=== PATIENT | male | born 2000 | race Caucasian/White ===

== ENCOUNTER 2019-06-21 02:20 | Emergency (ER) | payer SELFPAY ==
[~2019-06-21] VITALS: Ht 175.3 cm; Wt 77.1 kg
[2019-06-21 02:28] VITALS: BP 125/39
--- NOTE | 2019-06-21 02:28 | NUR ---
EDNA QUEZADA TO CHAIR D
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
--- NOTE | 2019-06-21 02:45 | NUR ---
PT DISCHARGED BACK TO [facility] CUSTODY BY DR. GALLEGOS
[2019-06-21 02:46] VITALS: BP 125/39
--- NOTE | 2019-06-21 02:47 | NUR ---
PATIENT BIB [facility] [employer]. PATIENT EXAMINED BY DR. GALLEGOS. PATIENT MEDICALLY CLEARED AND RELEASED IN CUSTODY IN STABLE CONDITION. ORIGINAL PRE-BOOK FORM GIVEN TO OFFICER [facility].
== END 2019-06-21 02:47 ==
LOC: MED 02:20
DX: Z04.3 Encounter for examination and observation following other accident (principal); Z02.89 Encounter for other administrative examinations; Y04.0XXA Assault by unarmed brawl or fight, initial encounter; Y93.89 Activity, other specified; Y92.89 Other specified places as the place of occurrence of the external cause; Y99.8 Other external cause status
CPT/HCPCS: 99283